=== PATIENT | male | born 1945 | race Caucasian/White ===

== ENCOUNTER 2023-08-21 17:34 | Inpatient (IN) | payer MEDICARE, OTHER ==
[~2023-08-21] VITALS: Ht 177.8 cm; Wt 66.2 kg
[2023-08-21] MEDS ORDERED: ASPI81TA49 PO (18:01)
[2023-08-21] MEDS ORDERED: AMLO-212 PO (18:01)
[2023-08-21] MEDS ORDERED: LISI40TA13 PO (18:01)
[2023-08-21] MEDS ORDERED: METO-357 PO (18:01)
[2023-08-21] MEDS ORDERED: POLY17PO4 PO (18:01)
[2023-08-21] MEDS ORDERED: QUET25TA PO ×2 (18:01)
[2023-08-21] MEDS ORDERED: LEVO25TA9 PO (18:01)
[2023-08-21] MEDS ORDERED: MULT-213 PO (18:01)
[2023-08-21] MEDS ORDERED: MELA10CA PO (18:01)
[2023-08-21] MEDS ORDERED: ASCO500C18 PO (18:01)
[2023-08-21] MEDS ORDERED: CARB1TAB39 PO (18:01)
[2023-08-21] MEDS: OLANZAPINE 10 MG VIAL IM ONE (20:03)
[2023-08-21] MEDS ORDERED: MIRALAX 17 GM POWD.PACK PO PRN (20:15)
[2023-08-21] MEDS ORDERED: MAG HYDROX/AL HYDROX/SIMETH 30 ML LIQUID UDC PO PRN (20:30)
[2023-08-21] MEDS ORDERED: TEMAZEPAM 7.5 MG CAPSULE PO PRN (20:30)
[2023-08-21] MEDS ORDERED: ACETAMINOPHEN 325 MG TABLET PO PRN (20:30)
[2023-08-21] MEDS ORDERED: MAGNESIUM HYDROXIDE 30 ML LIQUID UDC PO PRN (20:30)
[2023-08-21] MEDS: BLOOD SUGAR DIAGNOSTIC 1 EACH STRIP VI ONE (21:11)
[2023-08-22] MEDS: LEVOTHYROXINE SODIUM 25 MCG TABLET PO SCH (07:00)
[2023-08-22 07:30] VITALS: BP 142/69; TEMP 98.2; O2SAT 99
[2023-08-22] MEDS ORDERED: CARB1TAB21 PO (08:34)
[2023-08-22] MEDS ORDERED: CARBIDOPA/LEVODOPA CR 25-100MG TABLET.SA PO SCH (09:00)
[2023-08-22] MEDS: AMLODIPINE 5 MG TABLET PO SCH (09:07)
[2023-08-22] MEDS: ASCORBIC ACID 500 MG TABLET PO SCH (09:07)
[2023-08-22] MEDS: ASPIRIN EC 81 MG TABLET.DR PO SCH (09:07)
[2023-08-22] MEDS: MULTIVITAMINS,THERAPEUTIC TABLET PO SCH (09:07)
[2023-08-22] MEDS: CARBIDOPA/LEVODOPA 25-100MG TABLET PO SCH (09:07)
[2023-08-22] MEDS: METOPROLOL SUCCINATE XL 50 MG TAB.SR.24H PO SCH (09:07)
[2023-08-22] MEDS: LORAZEPAM 0.5 MG TABLET PO PRN (09:09)
[2023-08-22 11:11] LABS: BASOPHILS # (AUTO) 0.1 K/UL (0.0-0.2); BASOPHILS % (AUTO) 0.8 % (0.0-2.0); EOSINOPHILS # (AUTO) 0.1 K/uL (0.0-0.7); EOSINOPHILS % (AUTO) 1.6 % (0.0-7.0); HEMOGLOBIN 15.8 g/dL (10.9-14.3); LYMPHOCYTES # (AUTO) 2.2 K/uL (0.8-4.8); MEAN CORPUSCULAR HEMOGLOBIN 31.2 uug (24.7-32.8); MEAN CORPUSCULAR HGB CONC 34 g/dL (32.3-35.6); MEAN CORPUSCULAR VOLUME 92.8 fL (75.5-95.3); MONOCYTES # (AUTO) 0.8 K/uL (0.1-1.30); MONOCYTES % (AUTO) 8.5 % (0.0-11.0); NEUTROPHILS # (AUTO) 5.7 K/uL (1.8-8.9); NEUTROPHILS % (AUTO) 64.1 % (38.5-71.5); PLATELET COUNT (AUTO) 243 K/uL (179-408); RED BLOOD CELL COUNT(AUTO) 5.07 MIL/uL (3.63-4.92); RED CELL DISTRIBUTION WIDTH 13.6 % (12.3-17.7); WHITE BLOOD COUNT (AUTO) 8.9 K/uL (3.8-11.8)
[2023-08-22 11:22] LABS: THYROID STIMULATING HORMONE 6.008 mIU/mL (0.358-3.740)
[2023-08-22 11:42] LABS: DIFFERENTIAL COMMENT 1
[2023-08-22 11:59] LABS: ALANINE AMINOTRANSFERASE 9 U/L (14-59); ALBUMIN 4.1 g/dL (3.4-5.0); ALKALINE PHOSPHATASE 63 U/L (50-136); ASPARTATE AMINOTRANSFERASE 12 U/L (15-37); CALCIUM 9.3 mg/dL (8.5-10.1); CARBON DIOXIDE 27 mmol/L (21-32); CHLORIDE 105 mmol/L (98-107); CHOLESTEROL 190 mg/dL (<200); GLUCOSE 126 mg/dL (74-106); GLUCOSE FASTING 126 mg/dL (70-115); HDL CHOLESTEROL 63 mg/dL (40-60); MAGNESIUM 2.3 mg/dL (1.8-2.4); PHOSPHOROUS 3.6 mg/dL (2.5-4.9); POTASSIUM 3.5 mmol/L (3.5-5.1); SODIUM SERUM 146 mmol/L (136-145); TRIGLYCERIDES 68 MG/DL (30-150); UREA NITROGEN, BLOOD 40 mg/dL (7-18)
[2023-08-22] MEDS: DIVALPROEX 125 MG TABLET.DR PO SCH (12:43)
[2023-08-22] MEDS: QUETIAPINE FUMARATE 25 MG TABLET PO SCH (12:43)
[2023-08-22 15:10] VITALS: BP 115/80; TEMP 98; O2SAT 98
[2023-08-22 20:00] VITALS: BP 112/62; TEMP 98.1; O2SAT 97
[2023-08-23 07:56] VITALS: BP 139/100; TEMP 98.1; O2SAT 99
[2023-08-23 08:26] LABS: BASOPHILS # (AUTO) 0.1 K/UL (0.0-0.2); BASOPHILS % (AUTO) 1.3 % (0.0-2.0); EOSINOPHILS # (AUTO) 0.3 K/uL (0.0-0.7); EOSINOPHILS % (AUTO) 3.2 % (0.0-7.0); HEMATOCRIT 47.3 % (31.2-41.9); HEMOGLOBIN 15.8 g/dL (10.9-14.3); LYMPHOCYTES # (AUTO) 2.5 K/uL (0.8-4.8); LYMPHOCYTES % (AUTO) 27.6 % (20.5-51.5); MEAN CORPUSCULAR HEMOGLOBIN 31.1 uug (24.7-32.8); MEAN CORPUSCULAR HGB CONC 33 g/dL (32.3-35.6); MEAN CORPUSCULAR VOLUME 93.3 fL (75.5-95.3); MONOCYTES # (AUTO) 0.6 K/uL (0.1-1.30); MONOCYTES % (AUTO) 6.9 % (0.0-11.0); NEUTROPHILS # (AUTO) 5.5 K/uL (1.8-8.9); PLATELET COUNT (AUTO) 254 K/uL (179-408); RED BLOOD CELL COUNT(AUTO) 5.07 MIL/uL (3.63-4.92); RED CELL DISTRIBUTION WIDTH 13.9 % (12.3-17.7); WHITE BLOOD COUNT (AUTO) 9.1 K/uL (3.8-11.8)
[2023-08-23 08:34] LABS: DIFFERENTIAL COMMENT 1
[2023-08-23 08:43] LABS: ALANINE AMINOTRANSFERASE 19 U/L (14-59); ALBUMIN 4.2 g/dL (3.4-5.0); ALKALINE PHOSPHATASE 66 U/L (50-136); ASPARTATE AMINOTRANSFERASE 12 U/L (15-37); CARBON DIOXIDE 27 mmol/L (21-32); CHLORIDE 104 mmol/L (98-107); CREATINE KINASE, TOTAL 166 U/L (26-192); GLUCOSE 114 mg/dL (74-106); MAGNESIUM 2.3 mg/dL (1.8-2.4); PHOSPHOROUS 3.2 mg/dL (2.5-4.9); POTASSIUM 3.5 mmol/L (3.5-5.1); SODIUM SERUM 144 mmol/L (136-145); UREA NITROGEN, BLOOD 42 mg/dL (7-18)
[2023-08-23 16:51] VITALS: BP 126/83; TEMP 98; O2SAT 98
[2023-08-24 08:44] VITALS: BP 144/90; TEMP 98.1; O2SAT 98
[2023-08-24 16:09] VITALS: BP 117/84; TEMP 98; O2SAT 98
[2023-08-24 20:05] VITALS: BP 126/78; TEMP 98.2; O2SAT 96
[2023-08-25 07:22] LABS: BASOPHILS # (AUTO) 0.1 K/UL (0.0-0.2); BASOPHILS % (AUTO) 0.9 % (0.0-2.0); EOSINOPHILS # (AUTO) 0.3 K/uL (0.0-0.7); EOSINOPHILS % (AUTO) 4.7 % (0.0-7.0); HEMATOCRIT 39.7 % (31.2-41.9); HEMOGLOBIN 13.6 g/dL (10.9-14.3); LYMPHOCYTES # (AUTO) 1.9 K/uL (0.8-4.8); LYMPHOCYTES % (AUTO) 29.6 % (20.5-51.5); MEAN CORPUSCULAR HEMOGLOBIN 31.6 uug (24.7-32.8); MEAN CORPUSCULAR HGB CONC 34 g/dL (32.3-35.6); MEAN CORPUSCULAR VOLUME 92.4 fL (75.5-95.3); MONOCYTES # (AUTO) 0.5 K/uL (0.1-1.30); MONOCYTES % (AUTO) 8.3 % (0.0-11.0); NEUTROPHILS # (AUTO) 3.6 K/uL (1.8-8.9); NEUTROPHILS % (AUTO) 56.5 % (38.5-71.5); PLATELET COUNT (AUTO) 196 K/uL (179-408); RED CELL DISTRIBUTION WIDTH 13.6 % (12.3-17.7); WHITE BLOOD COUNT (AUTO) 6.3 K/uL (3.8-11.8)
[2023-08-25 07:28] LABS: DIFFERENTIAL COMMENT 1
[2023-08-25 07:43] LABS: ALANINE AMINOTRANSFERASE 6 U/L (14-59); ALBUMIN 3.3 g/dL (3.4-5.0); ALKALINE PHOSPHATASE 49 U/L (50-136); ASPARTATE AMINOTRANSFERASE 11 U/L (15-37); CALCIUM 8.5 mg/dL (8.5-10.1); CARBON DIOXIDE 29 mmol/L (21-32); CHLORIDE 107 mmol/L (98-107); CREATININE 1.8 mg/dL (0.6-1.3); GLUCOSE 92 mg/dL (74-106); MAGNESIUM 2.2 mg/dL (1.8-2.4); PHOSPHOROUS 2.6 mg/dL (2.5-4.9); POTASSIUM 3.9 mmol/L (3.5-5.1); SODIUM SERUM 143 mmol/L (136-145); TOTAL PROTEIN, SERUM 6.4 g/dL (6.4-8.2); UREA NITROGEN, BLOOD 41 mg/dL (7-18)
[2023-08-25 07:54] VITALS: BP 139/83; TEMP 98.1; O2SAT 98
[2023-08-25 14:09] LABS: A/G RATIO 0.9 (0.7-1.7); ALBUMIN 3.6 g/dL (2.9-4.4); ALPHA-1-GLOBULIN 0.3 g/dL (0.0-0.4); ALPHA-2-GLOBULIN 0.8 g/dL (0.4-1.0); GAMMA GLOBULIN 1.7 g/dL (0.4-1.8); GLOBULIN, TOTAL 3.8 g/dL (2.2-3.9); M-SPIKE 0.6 g/dL (Not Observed)
[2023-08-25 16:38] VITALS: BP 119/63; TEMP 98; O2SAT 98
[2023-08-25 19:50] VITALS: BP 130/68; TEMP 98.1; O2SAT 96
[2023-08-26 09:25] VITALS: BP 146/92; TEMP 98; O2SAT 99
[2023-08-26] MEDS: DIVALPROEX 125 MG TABLET.DR PO SCH (13:24)
[2023-08-26 15:12] VITALS: BP 111/83; TEMP 98.4; O2SAT 98
[2023-08-26 20:09] VITALS: BP 132/78; TEMP 98.2; O2SAT 97
[2023-08-26] MEDS: QUETIAPINE FUMARATE 25 MG TABLET PO SCH (20:45)
[2023-08-27] MEDS: LEVOTHYROXINE SODIUM 75 MCG TABLET PO SCH (06:28)
[2023-08-27 07:50] VITALS: BP 140/88; TEMP 97.8; O2SAT 98
[2023-08-27 08:51] VITALS: BP 140/88
[2023-08-27] MEDS: QUETIAPINE FUMARATE 25 MG TABLET PO SCH (08:51)
[2023-08-27] MEDS ORDERED: QUET50TA PO (12:59)
== END 2023-08-27 16:57 | disposition short-term general hospital (02) | DRG 885 ==
LOC: EDSEX → ER 17:43 → GPS 18:32
PROVIDERS: ADMIT Psychiatry & Neurology Psychosomatic Medicine; ATTEND Nurse Practitioner Acute Care
DX: F29 Unspecified psychosis not due to a substance or known physiological condition (principal); N17.9 Acute kidney failure, unspecified; G93.41 Metabolic encephalopathy; N17.0 Acute kidney failure with tubular necrosis; G91.9 Hydrocephalus, unspecified; F02.83 Dementia in other diseases classified elsewhere, unspecified severity, with mood disturbance; F02.811 Dementia in other diseases classified elsewhere, unspecified severity, with agitation; F41.9 Anxiety disorder, unspecified; G20.A1 Parkinson's disease without dyskinesia, without mention of fluctuations; Z86.61 Personal history of infections of the central nervous system; E03.9 Hypothyroidism, unspecified; R32 Unspecified urinary incontinence; I10 Essential (primary) hypertension; E86.9 Volume depletion, unspecified; Z98.2 Presence of cerebrospinal fluid drainage device; Z79.890 Hormone replacement therapy; Z79.82 Long term (current) use of aspirin; Z79.899 Other long term (current) drug therapy
CPT/HCPCS: 36415; 76770; 83735; 83970; 84100; 84155; 84165; 84443; 85025; J2358

== ENCOUNTER 2023-08-27 12:09 | Inpatient (IN) | payer MEDICARE, OTHER ==
[~2023-08-27] VITALS: Ht 177.8 cm; Wt 68.0 kg
[~2023-08-27 12:09] MED LIST: AMLO-212 PO; ASCO500C18 PO; ASPI81TA49 PO; CARB1TAB21 PO; LEVO25TA9 PO; LISI40TA13 PO; METO-357 PO; MULT-213 PO; POLY17PO4 PO
[2023-08-27 12:27] LABS: BASOPHILS # (AUTO) 0.1 K/UL (0.0-0.2); BASOPHILS % (AUTO) 0.8 % (0.0-2.0); EOSINOPHILS # (AUTO) 0.2 K/uL (0.0-0.7); EOSINOPHILS % (AUTO) 2.8 % (0.0-7.0); HEMATOCRIT 40.3 % (36.7-47.1); HEMOGLOBIN 13.8 g/dL (12.5-16.3); LYMPHOCYTES # (AUTO) 2.6 K/uL (0.8-4.8); LYMPHOCYTES % (AUTO) 29.9 % (20.5-51.5); MEAN CORPUSCULAR HEMOGLOBIN 31.8 uug (23.8-33.4); MEAN CORPUSCULAR HGB CONC 34 g/dL (32.5-36.3); MEAN CORPUSCULAR VOLUME 92.7 fL (73.0-96.2); MONOCYTES # (AUTO) 0.7 K/uL (0.1-1.30); NEUTROPHILS % (AUTO) 58.5 % (38.5-71.5); PLATELET COUNT (AUTO) 214 K/uL (152-348); RED BLOOD CELL COUNT(AUTO) 4.35 MIL/uL (4.06-5.63); RED CELL DISTRIBUTION WIDTH 13.4 % (12.1-16.2); WHITE BLOOD COUNT (AUTO) 8.6 K/uL (3.6-10.2)
[2023-08-27 12:33] LABS: DIFFERENTIAL COMMENT 1
[2023-08-27 12:35] LABS: CALCIUM 8.7 mg/dL (8.5-10.1); CARBON DIOXIDE 29 mmol/L (21-32); CHLORIDE 106 mmol/L (98-107); CREATININE 1.8 mg/dL (0.6-1.3); GLUCOSE 98 mg/dL (74-106); POTASSIUM 3.9 mmol/L (3.5-5.1); SODIUM SERUM 144 mmol/L (136-145); UREA NITROGEN, BLOOD 37 mg/dL (7-18)
[2023-08-27 12:36] LABS: ETHANOL < 3 MG/DL (0-10)
[2023-08-27 12:50] LABS: ALANINE AMINOTRANSFERASE 10 U/L (16-63); ALBUMIN 3.4 g/dL (3.4-5.0); ALKALINE PHOSPHATASE 55 U/L (50-136); ASPARTATE AMINOTRANSFERASE 8 U/L (15-37); BILIRUBIN,DIRECT 0.1 mg/dL (0.0-0.2); BILIRUBIN,TOTAL 0.8 mg/dL (0.2-1.0); TOTAL PROTEIN, SERUM 6.6 g/dL (6.4-8.2)
[2023-08-27 12:52] LABS: AMMONIA 12 umol/L (11-32)
[2023-08-27 12:53] LABS: ACETAMINOPHEN < 2.0 ug/mL (10-30)
[2023-08-27] MEDS ORDERED: QUET50TA PO (12:59)
[2023-08-27 13:14] LABS: THYROID STIMULATING HORMONE 3.522 mIU/mL (0.358-3.740)
[2023-08-27 13:37] LABS: ABG BASE EXCESS 1.4 mmol/L (-2.0-2.0); ABG HCO3 26.1 mmol/L (22.0-26.0); ABG PCO2 41.8 mmHg (35.0-48.0); ABG PH 7.414 (7.340-7.440); ABG PO2 368.6 mmHg (75.0-100.0); ABG SITE RIGHT RADIAL; ABG TOTAL HEMOGLOBIN 14.5 G/dL (14.0-18.0); AaDO2 99.8 mmHg; COHb 0.5 % (0.0-3.9); MetHb 0.2 % (0.0-1.5); O2Hb 99.1 % (94.0-97.0)
[2023-08-27] MEDS ORDERED: ACETAMINOPHEN 325 MG TABLET PO PRN (15:45)
[2023-08-27] MEDS ORDERED: ONDANSETRON 4 MG/2 ML VIAL IV PRN (15:45)
[2023-08-27] MEDS ORDERED: MAGNESIUM HYDROXIDE 30 ML LIQUID UDC PO PRN (15:45)
[2023-08-27] MEDS ORDERED: REMEDY ESSENTIAL ZINC PASTE 113 GM TP PRN (15:45)
[2023-08-27] MEDS ORDERED: MIRALAX 17 GM POWD.PACK PO PRN (15:45)
[2023-08-27 16:06] LABS: *BILIRUBIN,URIN NEGATIVE (NEGATIVE); *BLOOD, URINE NEGATIVE (NEGATIVE); *CLARITY,URINE CLEAR (CLEAR); *COLOR,URINE YELLOW (YELLOW); *KETONES,URINE NEGATIVE (NEGATIVE); *PROTEIN,URINE NEGATIVE (NEGATIVE); *UROBILINOGEN,URINE 0.2 E.U./dl (NORMAL); LEUKOCYTE ESTERASE ,URINE NEGATIVE (NEGATIVE); NITRITE, URINE NEGATIVE (NEGATIVE); UGLUCOSE NEGATIVE (NEGATIVE)
[2023-08-27 16:18] LABS: *AMPHETAMINE, URINE NEGATIVE (NEGATIVE); *BARBITURATE, URINE NEGATIVE (NEGATIVE); *BENZODIAZEPINE, URINE NEGATIVE (NEGATIVE); *CANNABINOID, URINE NEGATIVE (NEGATIVE); *COCCAINE, URINE NEGATIVE (NEGATIVE); *OPIATE, URINE NEGATIVE (NEGATIVE); *PHENCYCLIDINE SCREEN,URINE NEGATIVE (NEGATIVE); FENTANYL, URINE NEGATIVE (NEGATIVE)
[2023-08-27] MEDS: CARBIDOPA/LEVODOPA 25-100MG TABLET PO SCH (17:13)
[2023-08-27 19:11] VITALS: BP 124/84; TEMP 98.6
[2023-08-27 20:00] VITALS: BP 129/82; TEMP 98.6; O2SAT 95
[2023-08-28 00:54] VITALS: BP 137/77; TEMP 98.5
[2023-08-28 05:33] VITALS: BP 133/80; TEMP 97.7; O2SAT 96
[2023-08-28 06:39] LABS: BASOPHILS # (AUTO) 0.3 K/UL (0.0-0.2); BASOPHILS % (AUTO) 4.7 % (0.0-2.0); EOSINOPHILS # (AUTO) 0.1 K/uL (0.0-0.7); EOSINOPHILS % (AUTO) 2.1 % (0.0-7.0); HEMATOCRIT 36.6 % (36.7-47.1); HEMOGLOBIN 12.5 g/dL (12.5-16.3); LYMPHOCYTES % (AUTO) 14.5 % (20.5-51.5); MEAN CORPUSCULAR HEMOGLOBIN 31.4 uug (23.8-33.4); MEAN CORPUSCULAR HGB CONC 34 g/dL (32.5-36.3); MEAN CORPUSCULAR VOLUME 92.1 fL (73.0-96.2); MONOCYTES # (AUTO) 0.5 K/uL (0.1-1.30); MONOCYTES % (AUTO) 7.5 % (0.0-11.0); NEUTROPHILS # (AUTO) 4.7 K/uL (1.8-8.9); NEUTROPHILS % (AUTO) 71.2 % (38.5-71.5); PLATELET COUNT (AUTO) 178 K/uL (152-348); RED BLOOD CELL COUNT(AUTO) 3.98 MIL/uL (4.06-5.63); RED CELL DISTRIBUTION WIDTH 13.1 % (12.1-16.2); WHITE BLOOD COUNT (AUTO) 6.6 K/uL (3.6-10.2)
[2023-08-28] MEDS: IV NS 1000 ML 1,000 ML IV PRN (06:49)
[2023-08-28 06:51] LABS: DIFFERENTIAL COMMENT 1
[2023-08-28] MEDS: LEVOTHYROXINE SODIUM 25 MCG TABLET PO SCH (06:52)
[2023-08-28 06:56] LABS: CALCIUM 8.1 mg/dL (8.5-10.1); CARBON DIOXIDE 32 mmol/L (21-32); CHLORIDE 108 mmol/L (98-107); CREATININE 1.6 mg/dL (0.6-1.3); GLUCOSE 96 mg/dL (74-106); PHOSPHOROUS 2.8 mg/dL (2.5-4.9); POTASSIUM 3.9 mmol/L (3.5-5.1); SODIUM SERUM 144 mmol/L (136-145); UREA NITROGEN, BLOOD 33 mg/dL (7-18)
[2023-08-28 08:30] VITALS: BP 138/88; TEMP 98.6; O2SAT 98
[2023-08-28] MEDS: METOPROLOL SUCCINATE XL 50 MG TAB.SR.24H PO SCH (09:05)
[2023-08-28] MEDS: MULTIVIT, IRON, MIN NO. 8, FA TABLET PO SCH (09:05)
[2023-08-28] MEDS: ASCORBIC ACID 500 MG TABLET PO SCH (09:05)
[2023-08-28] MEDS: ASPIRIN EC 81 MG TABLET.DR PO SCH (09:05)
[2023-08-28] MEDS: AMLODIPINE 5 MG TABLET PO SCH (09:05)
[2023-08-28] MEDS: LISINOPRIL 20 MG TABLET PO SCH (09:05)
[2023-08-28] MEDS: QUETIAPINE FUMARATE 25 MG TABLET PO ONE (10:46)
[2023-08-28] MEDS: LORAZEPAM 2 MG/1 ML VIAL IM ONE (11:06)
[2023-08-28 11:38] VITALS: BP 95/76; TEMP 98; O2SAT 94
[2023-08-28] MEDS ORDERED: DIVALPROEX SPRINKLE 125 MG CAP.SPRINK PO SCH (13:00)
[2023-08-28] MEDS: VALPROIC ACID 250 MG/5 ML LIQUID UDC PO SCH (13:00)
[2023-08-28 16:00] VITALS: BP 131/81; TEMP 98
[2023-08-28] MEDS ORDERED: Medication Not On Formulary EA (Quetiapine Fumarate (Seroquel) 50 MG) PO SCH (18:00)
[2023-08-28] MEDS: LORAZEPAM 2 MG/1 ML VIAL IV ONE (18:07)
[2023-08-28 20:00] VITALS: BP 127/78; TEMP 97.9; O2SAT 95
[2023-08-29 06:34] LABS: BASOPHILS # (AUTO) 0.1 K/UL (0.0-0.2); BASOPHILS % (AUTO) 0.8 % (0.0-2.0); EOSINOPHILS # (AUTO) 0.1 K/uL (0.0-0.7); EOSINOPHILS % (AUTO) 1.3 % (0.0-7.0); HEMATOCRIT 40.1 % (36.7-47.1); HEMOGLOBIN 13.8 g/dL (12.5-16.3); LYMPHOCYTES # (AUTO) 1.7 K/uL (0.8-4.8); LYMPHOCYTES % (AUTO) 19.3 % (20.5-51.5); MEAN CORPUSCULAR HEMOGLOBIN 31.6 uug (23.8-33.4); MEAN CORPUSCULAR HGB CONC 34 g/dL (32.5-36.3); MEAN CORPUSCULAR VOLUME 92.3 fL (73.0-96.2); MONOCYTES # (AUTO) 0.7 K/uL (0.1-1.30); MONOCYTES % (AUTO) 8.2 % (0.0-11.0); NEUTROPHILS # (AUTO) 6.3 K/uL (1.8-8.9); NEUTROPHILS % (AUTO) 70.4 % (38.5-71.5); PLATELET COUNT (AUTO) 192 K/uL (152-348); RED BLOOD CELL COUNT(AUTO) 4.35 MIL/uL (4.06-5.63); RED CELL DISTRIBUTION WIDTH 13.1 % (12.1-16.2); WHITE BLOOD COUNT (AUTO) 8.9 K/uL (3.6-10.2)
[2023-08-29 06:46] LABS: DIFFERENTIAL COMMENT 1
[2023-08-29 07:00] LABS: CARBON DIOXIDE 26 mmol/L (21-32); CHLORIDE 105 mmol/L (98-107); CREATININE 1.5 mg/dL (0.6-1.3); GLUCOSE 85 mg/dL (74-106); POTASSIUM 4.1 mmol/L (3.5-5.1); SODIUM SERUM 141 mmol/L (136-145); UREA NITROGEN, BLOOD 26 mg/dL (7-18)
[2023-08-29 08:00] VITALS: BP 121/87; TEMP 97.6; O2SAT 98
[2023-08-29] MEDS: LORAZEPAM 2 MG/1 ML VIAL IV ONE (10:49)
[2023-08-29] MEDS: VALPROIC ACID 250 MG/5 ML LIQUID UDC PO SCH (13:05)
[2023-08-29] MEDS: LORAZEPAM 0.5 MG TABLET PO SCH (13:05)
[2023-08-29 16:00] VITALS: BP 148/84; TEMP 97.6; O2SAT 98
[2023-08-29 20:00] VITALS: BP 155/65; TEMP 98; O2SAT 98
[2023-08-30 04:15] VITALS: BP 153/67; TEMP 98; O2SAT 98
[2023-08-30 11:34] VITALS: BP 150/95; TEMP 98.5; O2SAT 99
[2023-08-30] MEDS ORDERED: LISI20TA30 PO (15:28)
[2023-08-30] MEDS ORDERED: LEVO25TA9 PO (15:28)
[2023-08-30] MEDS ORDERED: Multivit, Iron, Min No. 8, Fa PO (15:28)
[2023-08-30] MEDS ORDERED: ASPI-618 PO (15:28)
[2023-08-30] MEDS ORDERED: MAGN400O6 PO (15:28)
[2023-08-30] MEDS ORDERED: ASCO500T21 PO (15:28)
[2023-08-30] MEDS ORDERED: VALP250S22 PO (15:28)
[2023-08-30] MEDS ORDERED: AMLO-212 PO (15:28)
[2023-08-30] MEDS ORDERED: ACET325T53 PO (15:28)
[2023-08-30] MEDS ORDERED: METO-357 PO (15:28)
[2023-08-30 15:50] VITALS: BP 134/83; TEMP 98.3; O2SAT 95
== END 2023-08-30 18:00 | disposition short-term general hospital (02) | DRG 91 ==
LOC: ER 12:09 → TELE3 18:03 → MEDSURG3 08-28 11:05
PROVIDERS: ADMIT Nurse Practitioner Acute Care; ATTEND Nurse Practitioner Acute Care
PROC: 05HC33Z Insertion of Infusion Device into Left Basilic Vein, Percutaneous Approach (ICD-10-PCS; principal; 2023-08-29)
DX: T85.09XA Other mechanical complication of ventricular intracranial (communicating) shunt, initial encounter (principal); G93.41 Metabolic encephalopathy; N17.0 Acute kidney failure with tubular necrosis; G91.1 Obstructive hydrocephalus; F02.811 Dementia in other diseases classified elsewhere, unspecified severity, with agitation; F02.82 Dementia in other diseases classified elsewhere, unspecified severity, with psychotic disturbance; R55 Syncope and collapse; Y75.1 Therapeutic (nonsurgical) and rehabilitative neurological devices associated with adverse incidents; Y92.89 Other specified places as the place of occurrence of the external cause; E03.9 Hypothyroidism, unspecified; I12.9 Hypertensive chronic kidney disease with stage 1 through stage 4 chronic kidney disease, or unspecified chronic kidney disease; G20.A1 Parkinson's disease without dyskinesia, without mention of fluctuations; N18.9 Chronic kidney disease, unspecified; Z78.1 Physical restraint status; Z98.2 Presence of cerebrospinal fluid drainage device; Z79.82 Long term (current) use of aspirin
CPT/HCPCS: 36415; 36600; 70450; 71045; 80164; 83605; 83735; 84100; 84443; 84484; 85025; 85730; 87040; 87077; 93005; 93307; 93880; A6209; A6213; C1758; G0378; G0480; J2060; J7040